=== PATIENT | female | born 1985 | race Caucasian/White ===

== ENCOUNTER 2018-08-01 16:56 | Emergency (ER) | payer OTHER ==
[2018-08-01] MEDS: HYDROCODONE/APAP (5/325) TAB PO (17:46)
== END 2018-08-01 17:56 | disposition home or self-care (01) ==
LOC: FTE 17:56
DX: K08.89 Other specified disorders of teeth and supporting structures (principal)
CPT/HCPCS: 99283; Z7502